=== PATIENT | female | born 1975 | race Caucasian/White ===

== ENCOUNTER 2016-02-28 00:56 | Emergency (ER) | payer SELFPAY ==
[2016-02-28] MEDS ORDERED: KETOROLAC 60 MG/2 ML VIAL IM ONE (01:57)
== END 2016-02-28 03:02 | disposition home or self-care (01) ==
LOC: ER 00:56
CPT/HCPCS: 36415; 76830; 80048; 81003; 84702; 85025; 86901; 96372

== ENCOUNTER 2016-03-01 21:40 | Emergency (ER) | payer SELFPAY ==
[2016-03-01] MEDS ORDERED: OPTIRAY 350 100 ML VIAL HMH IV ONE (21:41)
[2016-03-02] MEDS ORDERED: MORPHINE 4 MG/ML SYR ONE (02:10)
[2016-03-02] MEDS ORDERED: ONDANSETRON 4 MG VIAL ONE (02:10)
== END 2016-03-02 04:10 | disposition home or self-care (01) ==
LOC: ER 21:40
DX: R10.9 Unspecified abdominal pain (principal); K29.70 Gastritis, unspecified, without bleeding; B96.81 Helicobacter pylori [H. pylori] as the cause of diseases classified elsewhere; K25.3 Acute gastric ulcer without hemorrhage or perforation; N83.291 Other ovarian cyst, right side; Z87.891 Personal history of nicotine dependence
CPT/HCPCS: 36415; 74177; 80053; 81001; 83690; 84703; 85025; 86677; 87077; 87088; 87186; 96374; 96375

== ENCOUNTER 2016-03-12 13:07 | Emergency (ER) | payer SELFPAY ==
[2016-03-12] MEDS ORDERED: ONDANSETRON 4 MG VIAL ONE (16:13)
[2016-03-12] MEDS ORDERED: FAMOTIDINE 20 MG INJ ONE (16:13)
[2016-03-12] MEDS ORDERED: SODIUM CHLORIDE 0.9% 1,000 ML ONE (16:13)
[2016-03-12] MEDS ORDERED: DILAUDID 1 MG/ML AMP ONE ×2 (17:03→18:28)
[2016-03-12] MEDS ORDERED: PROMETHAZINE 25 MG/ML VIAL ONE (19:14)
== END 2016-03-12 20:02 | disposition home or self-care (01) ==
LOC: ER 13:07
DX: R11.2 Nausea with vomiting, unspecified (principal); Z79.899 Other long term (current) drug therapy
CPT/HCPCS: 36415; 80053; 81001; 83690; 84703; 85025; 96361; 96374; 96375; 96376